=== PATIENT | male | born 1935 | race Caucasian/White ===

== ENCOUNTER 2016-12-16 08:37 | Inpatient (IN) | payer MEDICARE, OTHER ==
[~2016-12-16 08:37] MED LIST: AMLODIPINE-VAL1 EAC2 PO; ARICEPT10 M2 PO; B COMPLEX1 CAP; CELEBREX200 M1 PO; CELEBREX200 MG PO; COUMADIN5 MG PO; CPAP; DONEPEZIL HCL10 M2 PO; EXFORGE 5-3201 EACH PO; FISH OIL 1,0001 EAC7 PO; FLONASE ALLERG9.9 ML; FOLIC ACID1 M1 PO; GLUCOPHAGE500 M3 PO; HYDROCHLOROTHIA25 M1 PO; HYDROCHLOROTHIA25 MG; HYDROCHLOROTHIA25 MG PO; HYDROCORTISON28.411 TP; LIPITOR20 MG; LIPITOR20 MG PO; LIPITOR40 M1 PO; LOTREL 10/40 MG1 CAP; LOTREL 10/40 MG1 CAP PO; LUBRICANT EYE D OP; MACU GUARD; MAGNESIUM CITRATE PO; METFORMIN HCL500 M2 PO; METFORMIN HCL500 MG PO; MIRALAX17 G1 PO; MULTIVITAMINS1 EAC6 PO; NAMENDA10 M1 PO; NEURONTIN300 M1 PO; OMEGA 3 1,0001 EAC1 PO; OMEPRAZOLE40 M1 PO; PLAVIX75 M1 PO; PLAVIX75 MG; PLAVIX75 MG PO; SALMON OIL-1,001 CAP; TRAMADOL HCL50 MG PO; TRAVATAN 0.0042.5 ML; TRAVATAN 0.0042.5 ML OP; TRAVATAN Z5 M1 EACH EYE; TRICOR145 M1; TRICOR145 MG PO; TYLENOL EXTRA500 M1 PO; UNISOM50 M1 PO; VITAMIN B-1100 M3 PO; VITAMIN B-12; VITAMIN C1000 M1 PO; WARFARIN; XARELTO20 M1 PO; ZETIA10 MG; [UNRECOGNIZED DRUG - MIXTURE]; [UNRECOGNIZED DRUG - OTHER]; [UNRECOGNIZED DRUG - OTHER]; [UNRECOGNIZED DRUG - OTHER] TP
[2016-12-16 09:41] LABS: URINE BILIRUBIN NEGATIVE (NEG); URINE BLOOD NEGATIVE (NEG); URINE GLUCOSE (UA) NEGATIVE (NEG); URINE KETONE NEGATIVE (NEG); URINE LEUKOCYTE ESTERASE POSITIVE (NEG); URINE NITRITE NEGATIVE (NEG); URINE PROTEIN SMALL (NEG)
[2016-12-16 09:44] LABS: URINE APPEARANCE CLEAR; URINE COLOR YELLOW
[2016-12-16 09:49] LABS: URINE EPITHELIAL CELLS 0 /[HPF] (0-10); URINE RBC 0 /[HPF] (0-5); URINE WBC 0-2 /[HPF] (0-5)
[2016-12-17 05:40] LABS: BASO % 0.1 % (0-2); EOS % 0.1 % (0-7); HCT-HEMATOCRIT 34.5 % (36.0-53.5); IMMATURE GRANULOCYTES ABSOLUTE 0.04 tho/cmm (0-0.03); IMMATURE GRANULOCYTES PERCENT 0.3 % (0-0.3); LYMPH % 10.1 % (20-45); LYMPH ABSOLUTE COUNT 1.4 tho/cmm (0.8-4.5); MCH (MEAN CORPUSCULAR HGB) 30.5 pg (28.0-32.0); MCHC MEAN CORPUSCULAR HGB CONC 34.8 % (32.0-36.0); MCV (MEAN CELL VOLUME) 87.6 fl (82.0-96.0); MEAN PLATELET VOLUME 9.5 cmc (9.4-12.4); MONO % 12.9 % (0-12); MONOCYTE ABSOLUTE COUNT 1.7 tho/cmm (0.0-1.2); NEUTROPHIL ABSOLUTE COUNT 10.2 tho/cmm (1.6-8.0); NEUTROPHIL-AUTOMATED 10.2 tho/cmm (1.6-8.0); NEUTROPHILS % 76.5 % (40-80); PLATELET COUNT 218 tho/cmm (150-450); RED BLOOD COUNT 3.94 mil/cmm (4.40-5.70); RED CELL DISTRIBUTION WIDTH 12.9 % (12.4-16.4); WHITE BLOOD COUNT 13.4 tho/cmm (4.0-10.0)
[2016-12-17 06:30] LABS: ESR-ERYTHROCYTE SED RATE 7 mm/hr (0-20)
[2016-12-19] MEDS ORDERED: CELEBREX200 M1 PO (10:30)
[2016-12-19] MEDS ORDERED: ROXICODONE5 M2 PO (10:31)
[2016-12-19] MEDS ORDERED: TYLENOL325 M2 PO (10:32)
[2016-12-19] MEDS ORDERED: ULTRAM50 M1 PO (11:30)
== END 2016-12-19 12:25 | disposition home health service (06) | DRG 470 ==
LOC: SHSC 08:37 → ORE 11:01 → PACU 12:05 → 5EA 13:15
PROVIDERS: Internal Medicine; Physician Assistant Surgical; ADMIT Orthopaedic Surgery Foot and Ankle Surgery
PROC: 0SRC0J9 Replacement of Right Knee Joint with Synthetic Substitute, Cemented, Open Approach (ICD-10-PCS; principal; 2016-12-16)
DX: M17.11 Unilateral primary osteoarthritis, right knee (principal); F03.90 Unspecified dementia, unspecified severity, without behavioral disturbance, psychotic disturbance, mood disturbance, and anxiety; E11.9 Type 2 diabetes mellitus without complications; I10 Essential (primary) hypertension; E78.5 Hyperlipidemia, unspecified; E78.00 Pure hypercholesterolemia, unspecified; E78.1 Pure hyperglyceridemia; I25.10 Atherosclerotic heart disease of native coronary artery without angina pectoris; I73.9 Peripheral vascular disease, unspecified; Z79.02 Long term (current) use of antithrombotics/antiplatelets; Z79.84 Long term (current) use of oral hypoglycemic drugs; Z79.899 Other long term (current) drug therapy
CPT/HCPCS: C1713; C1776; J0171; J0690; J1885; J2270; J2795